=== PATIENT | female | born 1950 | race Caucasian/White ===

== ENCOUNTER 2018-02-18 08:34 | Day surgery (SDC) | payer OTHER ==
[~2018-02-18] VITALS: Ht 165.1 cm; Wt 135.0 kg
[~2018-02-18 08:34] MED LIST: ASPIRIN81 M2 PO; COZAAR50 MG PO; CYANOCOBAL1000 MCG/2 IM; FIBER GUMMIES1 EACH PO; GLIMEPIRIDE2 MG PO; LEVOTHYROXINE125 MCG PO; MEGARED OMEGA-1 EACH PO; OMEPRAZOLE40 M1 PO; PROBIOTIC1 EAC1 PO; SINGULAIR10 MG PO; STOOL SOFTENER100 MG PO; VITAMIN D31000 UNIT PO; XANAX0.25 MG PO; ZETIA10 MG PO; ZYRTEC10 M2 PO
== END 2018-02-18 16:20 | disposition home or self-care (01) ==
LOC: CATH 08:34
PROVIDERS: Internal Medicine Cardiovascular Disease
DX: R94.39 Abnormal result of other cardiovascular function study (principal); I10 Essential (primary) hypertension; E11.9 Type 2 diabetes mellitus without complications; E66.01 Morbid (severe) obesity due to excess calories; I45.10 Unspecified right bundle-branch block; E03.9 Hypothyroidism, unspecified; D64.9 Anemia, unspecified; Z79.82 Long term (current) use of aspirin
CPT/HCPCS: 82948; 93005; C1769; C1887; J1200; J1644; J2250; J3010; J7040

== ENCOUNTER 2018-04-06 05:22 | Day surgery (SDC) | payer OTHER, BC ==
[~2018-04-06] VITALS: Ht 165.1 cm; Wt 135.0 kg
[2018-04-06 06:01] VITALS: BP 132/66
[2018-04-06] MEDS ORDERED: ENDOCET 5-3251 EACH PO (07:20)
[2018-04-06] MEDS ORDERED: IBUPROFEN800 MG PO (07:20)
[2018-04-06 14:57] VITALS: BP 133/60
[2018-04-06 19:35] VITALS: BP 105/59
[2018-04-06 23:51] VITALS: BP 122/55
[2018-04-07 05:34] LABS: BASOPHIL (%) 0.2 % (0-1); EOSINOPHIL (%) 0.5 % (0-5); EOSINOPHIL COUNT 0.1 K/uL (0-0.3); HEMATOCRIT 31.1 % (36.0-46.0); IMMATURE GRANULOCYTE (%) 0.2 % (0.0-0.7); LYMPHOCYTE (%) 13.5 % (15-42); LYMPHOCYTE COUNT 1.3 K/uL (1.0-2.8); MCH 29.9 PG (29.0-34.0); MCHC 32.5 G/DL (30.0-36.0); MONOCYTE (%) 8.9 % (3-12); MONOCYTE COUNT 0.9 K/uL (0-0.8); NEUTROPHIL (%) 76.7 % (45-76); NEUTROPHIL COUNT 7.3 K/uL (1.8-6.4); RBC DIS.WIDTH-CV 14.6 % (11.8-14.6); RBC DIS.WIDTH-SD 48.9 % (39-53); WHITE BLOOD COUNT 9.6 K/uL (4.1-10.2)
[2018-04-07 05:37] LABS: HEMOGLOBIN 10.1 G/DL (11.9-15.5); PLATELET COUNT 181 K/uL (156-360); RED BLOOD COUNT 3.38 M/uL (3.80-5.20)
[2018-04-07 06:23] LABS: CHLORIDE 108 mEq/L (99-109); POTASSIUM 4.3 mEq/L (3.7-5.4); SODIUM 142 mEq/L (136-147)
[2018-04-07 06:26] LABS: GLUCOSE 154 mg/dL (70-99); TOTAL PROTEIN 5.3 g/dL (6.4-8.3)
[2018-04-07 06:28] LABS: TOTAL BILIRUBIN 0.8 mg/dL (0.0-1.0)
[2018-04-07 06:29] LABS: ALKALINE PHOSPHATASE 83 IU/L (3-129); CREATININE 1.2 mg/dL (0.6-1.3); GFR ESTIMATE (CALCULATED) 48 mL/min/
[2018-04-07 06:31] LABS: AST (GOT) 31 IU/L (2-34); UREA NITROGEN (BUN) 17 mg/dL (9-23)
[2018-04-07 06:32] LABS: ALT (GPT) 20 IU/L (3-49)
[2018-04-07 07:30] VITALS: BP 151/67
[2018-04-07 11:35] VITALS: BP 123/58
== END 2018-04-07 14:35 | disposition home or self-care (01) ==
LOC: SDC 05:22 → 2SOUTH 12:45 → 2EAST 12:45 → ENRESERV 13:09 → 2EAST 14:21 → ENRESERV 14:34 → CANRESERV 14:34 → SDC 15:04 → 2EAST 04-07 14:35
PROVIDERS: Obstetrics & Gynecology Gynecology
DX: D25.9 Leiomyoma of uterus, unspecified (principal); N85.8 Other specified noninflammatory disorders of uterus; E65 Localized adiposity; E11.9 Type 2 diabetes mellitus without complications; K21.9 Gastro-esophageal reflux disease without esophagitis; I45.10 Unspecified right bundle-branch block; Z87.891 Personal history of nicotine dependence; Z79.82 Long term (current) use of aspirin; Z79.84 Long term (current) use of oral hypoglycemic drugs
CPT/HCPCS: 74177; 80053; 82948; 85025; 85025 91; 88305; 88307; G0378; J0131; J0330; J0690; J1100; J1170; J1815; J1885; J2250; J3010; J7120; Q0175